=== PATIENT | female | born 2000 | race Two or more races ===

== ENCOUNTER 2021-11-06 14:19 | Emergency (ER) | payer OTHER ==
[~2021-11-06] VITALS: Ht 160 cm
[2021-11-06] MEDS ORDERED: LEXAPRO5 MG (15:11)
== END 2021-11-06 17:40 | disposition home or self-care (01) ==
LOC: ER 14:19
DX: S93.401A Sprain of unspecified ligament of right ankle, initial encounter (principal); V48.4XXA Person boarding or alighting a car injured in noncollision transport accident, initial encounter; Y93.89 Activity, other specified; Y92.413 State road as the place of occurrence of the external cause